=== PATIENT | female | born 1975 | race Caucasian/White ===

== ENCOUNTER → 2016-08-25 | Outpatient (CLI) | payer BC ==
[2016-08-25 15:16] LABS: THYROID STIMULATING HORMONE 0.857 uIu/ml (0.300-4.500)
[2016-08-31 20:33] LABS: MICROSOMAL AB 2 IU/ML (<9); TSI <89 % baseline (<140)
== END | disposition home or self-care (01) ==
LOC: C.LAB1850 13:46
PROVIDERS: ATTEND Internal Medicine Endocrinology, Diabetes & Metabolism
DX: E04.9 Nontoxic goiter, unspecified (principal); Z86.39 Personal history of other endocrine, nutritional and metabolic disease

== ENCOUNTER → 2016-10-06 | Outpatient (CLI) | payer BC ==
[2016-10-06 15:04] LABS: THYROID STIMULATING HORMONE 0.145 uIu/ml (0.300-4.500)
== END | disposition home or self-care (01) ==
LOC: C.LAB1850 12:54
PROVIDERS: ATTEND Internal Medicine Endocrinology, Diabetes & Metabolism
DX: Z86.39 Personal history of other endocrine, nutritional and metabolic disease (principal)

== ENCOUNTER → 2016-11-22 | Outpatient (CLI) | payer BC ==
--- NOTE | 2016-11-22 07:50 | DIAGNOSTIC IMAGING REPORT ---
THYROID ULTRASOUND HISTORY: E04.9 Goiter COMPARISON: Outside hospital nuclear medicine thyroid scan 02/05/2010. FINDINGS: Right lobe: 8.1 x 2.6 x 3.2 cm. Diffusely heterogeneous and multinodular. Dominant solid and cystic nodule within the upper pole measures 3.1 x 2.1 cm. Left lobe: A 0.7 x 3.3 x 3.8 cm. Diffusely heterogeneous and multinodular. Dominant nodule within the mid pole measures 2.4 x 2.3 x 1.8 cm. Isthmus: 1.5 cm in thickness. IMPRESSION: Multinodular goiter as described above. Electronically signed by: Dakotah Schaeffer M.D. 11/22/2016 7:48 AM Dictated Date/Time: 11/22/2016 7:46 AM
[2016-11-22 10:06] LABS: THYROID STIMULATING HORMONE 0.064 uIu/ml (0.300-4.500)
== END ==
LOC: C.ULTR 07:00
PROVIDERS: ATTEND Internal Medicine Endocrinology, Diabetes & Metabolism
DX: E04.9 Nontoxic goiter, unspecified (principal)

== ENCOUNTER → 2017-01-13 | Outpatient (CLI) | payer BC ==
[2017-01-13 12:28] LABS: THYROID STIMULATING HORMONE 0.014 uIu/ml (0.300-4.500)
== END | disposition home or self-care (01) ==
LOC: C.LAB1850 10:09
PROVIDERS: ATTEND Internal Medicine Endocrinology, Diabetes & Metabolism
DX: R94.6 Abnormal results of thyroid function studies (principal)

== ENCOUNTER → 2017-06-01 | Outpatient (CLI) | payer BC ==
[2017-06-01 15:11] LABS: THYROID STIMULATING HORMONE 0.293 uIu/ml (0.300-4.500)
== END | disposition home or self-care (01) ==
LOC: C.LAB1850 13:20
PROVIDERS: ATTEND Internal Medicine Endocrinology, Diabetes & Metabolism
DX: E03.9 Hypothyroidism, unspecified (principal)

== ENCOUNTER → 2017-09-22 | Outpatient (CLI) | payer BC ==
--- NOTE | 2017-09-23 07:44 | MAMMOGRAPHY REPORT ---
BILATERAL DIGITAL SCREENING MAMMOGRAM TOMOSYNTHESIS WITH CAD: 09/22/2017 CLINICAL HISTORY: Routine screening. Patient has no complaints. TECHNIQUE: Breast tomosynthesis in addition to standard 2D mammography was performed. Current study was also evaluated with a Computer Aided Detection (CAD) system. COMPARISON: Comparison is made to exams dated: 08/06/2015 mammogram, 08/22/2015 mammogram, and 08/22/19 16 ultrasound - [facility]. BREAST COMPOSITION: The tissue of both breasts is extremely dense, which lowers the sensitivity of m ammography. FINDINGS: There is an ovoid 16 mm asymmetry seen within the left lateral breast on the cc view, possi mao projecting inferiorly on the MLO view. Additionally, there are 2 adjacent asymmetries seen withi n the left lateral breast medial to the ovoid asymmetry on the cc view, which may represent normal fi broglandular tissue. Recommend spot compression tomosynthesis views and possible breast ultrasound f or further evaluation. The remainder of both breasts demonstrate no suspicious masses, calcifications, or areas of director of enterprise architecture ural distortion. IMPRESSION: ACR BI-RADS CATEGORY 0: INCOMPLETE EVALUATION: NEED ADDITIONAL IMAGING EVALUATION Left breast asymmetries, for which additional imaging evaluation is recommended. The patient will be called to schedule an appointment. Approximately 10% of breast cancers are not detected with mammography. A negative mammographic report should not delay biopsy if a clinically suggestive mass is present. Willow Casanova M.D. /:09/22/2017 17:27:44 Investment Associate: Lynnette HUYNH(Toni)(Benita), [facility] letter sent: Addl Imaging 0 BI-RADS Code: ACR BI-RADS Category 0: Incomplete Evaluation: Need Additional Imaging Evaluation
== END | disposition home or self-care (01) ==
LOC: C.MAMM 16:16
PROVIDERS: ATTEND Obstetrics & Gynecology
DX: Z12.31 Encounter for screening mammogram for malignant neoplasm of breast (principal); N64.89 Other specified disorders of breast

== ENCOUNTER → 2017-10-04 | Outpatient (CLI) | payer BC ==
--- NOTE | 2017-10-07 08:15 | MAMMOGRAPHY REPORT ---
UNILATERAL LEFT DIGITAL DIAGNOSTIC MAMMOGRAM TOMOSYNTHESIS AND TARGETED LEFT ULTRASOUND: 10/04/2017 CLINICAL HISTORY: 42-year-old woman called back from screening mammography for asymmetries in the lef t lateral and inferior breast. TECHNIQUE: Spot compression left CC and MLO tomosynthesis images were obtained. COMPARISON: Comparison is made to exams dated: 09/22/2017 mammogram - [facility], mammogram, 08/22/2015 ultrasound, and 08/06/2015 mammogram - [facility]. BREAST COMPOSITION: The tissue of the left breast is extremely dense, which lowers the sensitivity o f mammography. FINDINGS: The supplemental spot compression tomosynthesis views of the left breast demonstrate the pr eviously observed asymmetries are less conspicuous and may represent normal overlapping tissue. Curr ently, there is no definite evidence of a left breast mass, focal area of distortion or suspicious ca lcifications. Further evaluation with ultrasound was performed. Targeted ultrasound was performed throughout the left breast, with particular attention to the latera l and inferior breast. Throughout the lateral and inferior breast, sonographically normal tissue is seen without a suspicious solid or cystic mass. In the medial left breast at 10:00, 1 cm from the ni pple, there is an oval parallel circumscribed hypoechoic solid versus cystic mass abutting the pector mague muscle, measuring 5.0 x 2.2 x 5.7 mm. This could represent a complicated cyst or benign mass andersen ch as a fibroadenoma. There is a tiny probable cyst, oval, parallel and circumscribed in the 8:00 le ft breast, 2 cm from the nipple, measuring 2.6 x 1.5 mm. The previously observed cyst in the 9:00 ax is, 4 cm from the nipple is no longer seen. IMPRESSION: ACR-BI-RADS CATEGORY 3: PROBABLY BENIGN, TARGETED ULTRASOUND ACR-BI-RADS CATEGORY 3: PRO BABLY BENIGN 1. Less prominent left breast asymmetries with supplemental spot compression tomosynthesis images, a nd no suspicious sonographic correlates identified, suggesting they represented normal overlapping fi broglandular tissue. There are benign-appearing subcentimeter circumscribed oval masses in the left breast at 8:00 and 10:00 which were likely incidentally identified on ultrasound and could represent complicated cysts or benign fibroadenomas. A short interval follow-up left diagnostic tomosynthesis mammogram and repeat targeted ultrasound is recommended to ensure stability in 6 months. These results and recommendations were discussed with the patient at the time of the exam. Approximately 10% of breast cancers are not detected with mammography. A negative mammographic report should not delay biopsy if a clinically suggestive mass is present. Ros Callaway M.D. ay/:10/04/2017 12:12:54 Education And Training Coordinator: Lynnette HUYNH(Toni)(Benita), [facility] letter sent: Follow Up Recommended 3 BI-RADS Code: ACR-BI-RADS Category 3: Probably Benign Ultrasound BI-RADS: ACR-BI-RADS Category 3: Pr obably Benign
== END | disposition home or self-care (01) ==
LOC: C.MAMM 11:21
PROVIDERS: ATTEND Obstetrics & Gynecology
DX: N64.89 Other specified disorders of breast (principal); N63.22 Unspecified lump in the left breast, upper inner quadrant; N63.24 Unspecified lump in the left breast, lower inner quadrant